=== PATIENT | female | born 1955 | race Caucasian/White ===

== ENCOUNTER 2021-08-01 02:17 | Inpatient (IN) | payer MEDICARE, OTHER ==
[~2021-08-01] VITALS: Ht 162.6 cm; Wt 72.6 kg
--- NOTE | 2021-08-01 04:00 | NUR ---
CARLA FROM [facility] FOR AGRESSIVE BEHAVIOR AND STRIKING STAFF FOR MEDCLEARANCE FOR PATRICIA PSYCH. PATIENT TAKEN TO ER BED 10
[2021-08-01 04:34] LABS: BASOPHILS # (AUTO) 0.1 K/uL (0.0-0.2); BASOPHILS % (AUTO) 0.7 % (0.0-2.0); HEMATOCRIT 39 % (33-45); HEMOGLOBIN 13.5 g/dL (11.5-14.8); LYMPHOCYTES # (AUTO) 0.7 K/uL (0.8-4.8); LYMPHOCYTES % (AUTO) 8.3 % (20.0-44.0); MEAN CORPUSCULAR HGB CONC 35 g/dl (31.0-36.0); MEAN CORPUSCULAR VOLUME 87 fL (82-100); MONOCYTES # (AUTO) 0.6 K/uL (0.1-1.30); MONOCYTES % (AUTO) 7.5 % (2.0-12.0); NEUTROPHILS # (AUTO) 6.8 K/uL (1.8-8.9); NEUTROPHILS % (AUTO) 82.5 % (43.0-81.0); PLATELET COUNT (AUTO) 228 K/uL (150-450); WHITE BLOOD COUNT (AUTO) 8.3 K/uL (4.3-11.0)
--- NOTE | 2021-08-01 04:43 | NUR ---
COVID ANTIGEN SWAB COLLECTED AND SENT TO LAB
[2021-08-01 04:45] LABS: CALCIUM, SERUM 9.2 mg/dL (8.5-10.1); CARBON DIOXIDE 27 mmol/L (21-32); CHLORIDE 106 mmol/L (98-107); CREATININE 0.9 mg/dL (0.6-1.3); GLUCOSE 120 mg/dL (74-106); POTASSIUM 3.6 mmol/L (3.5-5.1); SODIUM SERUM 141 mmol/L (136-145); UREA NITROGEN, BLOOD 30 mg/dL (7-18)
[2021-08-01 04:50] LABS: ALANINE AMINOTRANSFERASE 22 U/L (12-78); ALBUMIN 3.6 g/dL (3.4-5.0); ALCOHOL, BLOOD < 3 mg/dL (0-0); ALKALINE PHOSPHATASE 106 U/L (46-116); ASPARTATE AMINOTRANSFERASE 21 U/L (15-37); BILIRUBIN,DIRECT 0.2 mg/dL (0.0-0.2); BILIRUBIN,TOTAL 0.9 mg/dL (0.2-1.0); TOTAL PROTEIN, SERUM 6.7 g/dL (6.4-8.2)
[2021-08-01 04:51] LABS: ACETAMINOPHEN 0 ug/ml (10-30)
[2021-08-01] MEDS ORDERED: IV NS 0.9% 1,000 ML IV ONE (05:00)
[2021-08-01 05:50] LABS: BILIRUBIN,URINE NEGATIVE (NEGATIVE); COLOR,URINE YELLOW (YELLOW); LEUKOCYTE ESTERASE ,URINE NEGATIVE (NEGATIVE); NITRITE, URINE NEGATIVE (NEGATIVE); PROTEIN,URINE NEGATIVE (NEGATIVE); UGLUCOSE NEGATIVE (NEGATIVE); UROBILINOGEN,URINE 0.2 EU/dL (0.2)
--- NOTE | 2021-08-01 08:10 | NUR ---
REPORT GIVEN TO GUDELIA LOU FOR FAZAL.
--- NOTE | 2021-08-01 08:30 | NUR ---
RN-ADMISSION NOTES ADMITTED 66 Y.O FEMALE PATIENT FROM [facility] ER. PATIENT IS UNDER THE CARE OF DR. VALDEZ( PSYCHIATRIST) DR. BAUER COVERING FOR TODAY SEEN THE PATIENT WITH ORDERS.DR. GALINDO ( TOOL CRIB MANAGER) MADE AWARE OF THE ADMISSION. PATIENT ARRIVED IN THE UNIT VIA HOSPITAL BED ACCOMPANIED BY ONE ER STAFF. PATIENT IS AWAKE,A/O X1,GUARDED. UPON FACE TO FACE ASSESSMENT WITH THE PATIENT ,PATIENT IS CONFUSED REFUSED TO ANSWER QUESTIONS,POOR HISTORIAN UNABLE TO GIVE INFORMATIONS,SOME INFORMATIONS WAS OBTAINED FROM HER SISTER EAGLE DO ([phone]). SKIN ASSESSMENT DONE ALSO MRSA SWAB DONE AND SENT TO THE LABS . PATIENT NEEDS ASSIST IN AMBULATING DUE TO UNSTEADY GAIT.PER PATIENT'S SISTER ( EAGLE) NO PNA AND FLU VACCINE THIS YEAR FOR THE PATIENT BUT GOT THE 2 DOSES OF COVID VACCINE WITH BAD REACTIONS.PATIENT WAS PUT ON 5150 HOLD FOR HARM SOME ONE ELSE/GD . PER HOLD PATIENT WAS AGGRESSIVE AT THE FACILITY HITTING STAFF AND REFUSING HER MEDS. PATIENT ORIENTED IN THE UNIT AND UNIT POLICIES. PATIENT'S RIGHT AND ADVISEMENT WAS GIVEN TO THE PATIENT. Addendum: 08/01/21 at 1835 by VIRGINIA LEDEZMA RN PATIENT X1 WHITE NECKLACE WITH HER, REFUSED TO GIVE TO THE STAFF FOR SAFE KEEPING.
[2021-08-01 09:00] VITALS: BP 137/90
[2021-08-01] MEDS ORDERED: MAG HYDROX/AL HYDROX/SIMETH 30 ML UDC PO PRN (09:00)
[2021-08-01] MEDS ORDERED: MAGNESIUM HYDROXIDE 30 ML UDC PO PRN (09:00)
[2021-08-01] MEDS ORDERED: CARB1TAB40 MT (12:15)
[2021-08-01] MEDS ORDERED: PRAV40TA3 PO (12:15)
[2021-08-01] MEDS ORDERED: MEMA10TA56 PO (12:15)
[2021-08-01] MEDS ORDERED: DOCU100C36 PO (12:15)
[2021-08-01] MEDS ORDERED: PRAM0.258 PO (12:15)
[2021-08-01] MEDS ORDERED: PRAM0.253 PO (12:20)
[2021-08-01] MEDS ORDERED: MEMANTINE HCL 5 MG TABLET PO SCH (14:00)
[2021-08-01] MEDS: PRAMIPEXOLE DI-HCL 0.25 MG TABLET PO SCH ×2 (14:29→17:22)
[2021-08-01 16:00] VITALS: BP 116/67
[2021-08-01] MEDS: CARBIDOPA/LEV CR 50/200 MG 1 UDTAB.SA PO SCH (17:22)
--- NOTE | 2021-08-01 19:35 | NUR ---
RN OPENING NOTE PATIENT AWAKE GERICHAIR NEAR NURSE'S STATION. A/OX1. NO S/S OF DISTRESS; BREATHING UNLABORED ON RM AIR. PATIENT PRESENTS MINIMALLY ANXIOUS IN HER CHAIR BUT PLEASANT AFFECT OTHERWISE. SAFETY MEASURES IN PLACE: BED AT LOWEST POSITION, CALL LIGHT WITHIN ACCESS. WILL CONTINUE TO MONITOR PATIENT.
[2021-08-01 21:09] VITALS: BP 113/69
[2021-08-01] MEDS: ATORVASTATIN 40 MG TABLET PO SCH (21:34)
[2021-08-01] MEDS: QUETIAPINE FUMARATE 25 MG TABLET PO SCH (21:34)
[2021-08-01] MEDS: MEMANTINE HCL 5 MG TABLET PO SCH (21:35)
[2021-08-01] MEDS: TEMAZEPAM 7.5 MG CAPSULE PO PRN (22:53)
[2021-08-02] MEDS: LORAZEPAM 0.5 MG TABLET PO PRN ×2 (02:06→19:51)
[2021-08-02 08:00] VITALS: BP 112/81
[2021-08-02] MEDS: PRAMIPEXOLE DI-HCL 0.25 MG TABLET PO SCH ×2 (09:07→17:02)
[2021-08-02] MEDS: DOCUSATE SODIUM 100 MG CAPSULE PO SCH (09:07)
[2021-08-02] MEDS: FLUOXETINE HCL 20 MG CAPSULE PO SCH (09:07)
[2021-08-02 16:00] VITALS: BP 142/73
[2021-08-02] MEDS: CARBIDOPA/LEV CR 50/200 MG 1 UDTAB.SA PO SCH (17:02)
[2021-08-02 20:23] VITALS: BP 132/74
[2021-08-02 20:26] VITALS: BP 132/74
[2021-08-02] MEDS: ATORVASTATIN 40 MG TABLET PO SCH (21:40)
[2021-08-02] MEDS: MEMANTINE HCL 5 MG TABLET PO SCH (21:40)
[2021-08-02] MEDS: QUETIAPINE FUMARATE 25 MG TABLET PO SCH (21:40)
--- NOTE | 2021-08-02 22:54 | NUR ---
GPS RN NOTES PATIENT CURRENTLY IN CLAUDE-CHAIR FOR AGGRESSIVE BEHAVIOR; ATTEMPTED TO DO SKIN ASSESSMENT, PATIENT AGITATED, RESTLESS AND AGGRESSIVE; TRYING TO GET OUT OF CHAIR, SHAKING TABLE AND CRYING; PRN MEDS ALREADY GIVEN; WITH NO RELIEF; PER PREVIOUS SHIFT, PATIENT ATTEMPTS TO STRIKE STAFF WHEN UPSET; UNABLE TO TAKE PHOTOS AT THIS TIME; WILL TRY AGAIN LATER IF PATIENT IS CALM; CHARGE NURSE MADE AWARE; WILL CONT TO MONITOR
--- NOTE | 2021-08-03 01:35 | NUR ---
GPS RN NOTES PATIENT AGITATED, ATTEMPTING TO STRIKE STAFF, YELLING AT OTHER PATIENTS TO SHUT UP; UNABLE TO DO SKIN ASSESSMENT, PATIENT REFUSING, CHARGE NURSE AWARE
[2021-08-03] MEDS: LORAZEPAM 0.5 MG TABLET PO PRN ×3 (05:47→20:14)
[2021-08-03 08:00] VITALS: BP 130/75
[2021-08-03] MEDS: FLUOXETINE HCL 20 MG CAPSULE PO SCH (08:57)
[2021-08-03] MEDS: PRAMIPEXOLE DI-HCL 0.25 MG TABLET PO SCH ×2 (08:57→17:09)
[2021-08-03] MEDS: DOCUSATE SODIUM 100 MG CAPSULE PO SCH (08:57)
--- NOTE | 2021-08-03 09:58 | NUR ---
XAVI Admit Source: Patient placed on a 5150 hold for danger to others and GD. Patient was aggressive at [facility] and was non compliant. Patient currently resides at [facility] [address] [place] [address]; ([phone]). XAVI spoke with Maximiliano portillo who stated that pt is welcomed back upon discharge.
--- NOTE | 2021-08-03 09:58 | NUR ---
XAVI Initial Discharge Plan: Patient currently resides at [facility] [address] [place] [address]; ([phone]). XAVI spoke with Maximiliano portillo who stated that pt is welcomed back upon discharge. XAVI will work with the MD, treatment team, and family to help coordinate appropriate discharge.
--- NOTE | 2021-08-03 10:00 | NUR ---
XAVI Family Contact: XAVI contacted patient's sister Nataliya ([phone]) discussed treatment and discharge plan. She stated that she is the DPOA and will send documents. Nataliya would want pt back to [facility] once pt is stable.
--- NOTE | 2021-08-03 11:23 | NUR ---
DPOA: Patient's sister Nataliya ([phone]) sent DPOA documents to this check writer salesperson. This check writer salesperson placed in patient's chart.
[2021-08-03 16:00] VITALS: BP 116/76
[2021-08-03] MEDS: CARBIDOPA/LEV CR 50/200 MG 1 UDTAB.SA PO SCH (17:10)
[2021-08-03] MEDS: ACETAMINOPHEN 325 MG TABLET PO PRN (20:04)
[2021-08-03 20:06] VITALS: BP 136/56
--- NOTE | 2021-08-03 20:06 | NUR ---
GPS RN NOTE: PAIN PATIENT C/O BACK PAIN BUT UNABLE TO SCALE PAIN LEVEL DUE TO CONFUSION. PRN TYLENOL 650 MG PO ADMINISTERED.
--- NOTE | 2021-08-03 20:16 | NUR ---
GPS RN NOTE: ANXIETY/AGITATION PATIENT IS ANXIOUS, RESTLESS, BANGING THE CLAUDE CHAIR TRAY, NON REDIRECTABLE. PRN ATIVAN 0.5 MG 1 TAB PO ADMINISTERED. WILL CONTINUE TO MONITOR.
[2021-08-03] MEDS: MEMANTINE HCL 5 MG TABLET PO SCH (21:37)
[2021-08-03] MEDS: ATORVASTATIN 40 MG TABLET PO SCH (21:37)
[2021-08-03] MEDS: QUETIAPINE FUMARATE 25 MG TABLET PO SCH (21:48)
[2021-08-04 08:00] VITALS: BP 100/52
[2021-08-04 08:02] LABS: CALCIUM, SERUM 8.7 mg/dL (8.5-10.1); CREATININE 0.7 mg/dL (0.6-1.3); POTASSIUM 3.7 mmol/L (3.5-5.1)
[2021-08-04] MEDS: FLUOXETINE HCL 20 MG CAPSULE PO SCH (09:25)
[2021-08-04] MEDS: PRAMIPEXOLE DI-HCL 0.25 MG TABLET PO SCH ×2 (09:25→18:02)
[2021-08-04] MEDS: DOCUSATE SODIUM 100 MG CAPSULE PO SCH (09:25)
[2021-08-04] MEDS: LORAZEPAM 0.5 MG TABLET PO PRN (14:58)
[2021-08-04 16:00] VITALS: BP 110/55
[2021-08-04] MEDS: CARBIDOPA/LEV CR 50/200 MG 1 UDTAB.SA PO SCH (18:02)
[2021-08-04 19:48] VITALS: BP 102/59
[2021-08-04 19:56] VITALS: BP 102/59
[2021-08-04] MEDS: TEMAZEPAM 7.5 MG CAPSULE PO PRN (21:36)
[2021-08-04] MEDS: QUETIAPINE FUMARATE 25 MG TABLET PO SCH (21:37)
[2021-08-04] MEDS: MEMANTINE HCL 5 MG TABLET PO SCH (21:37)
[2021-08-04] MEDS: ATORVASTATIN 40 MG TABLET PO SCH (21:37)
--- NOTE | 2021-08-05 04:45 | NUR ---
alert and orientated x1 confused takes her medication crushed with applesauce swallows w/o a problem slept in her bed always with the bed alarm on made the attemt to get OOB toward the AM placed in a Wendy Chair she at times will strike out a attempt to hit the nurse when gown being changed or when with the assist of 2 nurses placed n the chair
[2021-08-05 08:00] VITALS: BP 123/76
[2021-08-05] MEDS: FLUOXETINE HCL 20 MG CAPSULE PO SCH (08:49)
[2021-08-05] MEDS: LORAZEPAM 0.5 MG TABLET PO PRN ×2 (08:50→16:58)
[2021-08-05] MEDS: DOCUSATE SODIUM 100 MG CAPSULE PO SCH (08:50)
[2021-08-05] MEDS: PRAMIPEXOLE DI-HCL 0.25 MG TABLET PO SCH ×2 (08:50→17:00)
--- NOTE | 2021-08-05 09:10 | NUR ---
GIVEN ATIVAN AT THIS TIME.
[2021-08-05] MEDS: ACETAMINOPHEN 325 MG TABLET PO PRN (10:45)
--- NOTE | 2021-08-05 10:45 | NUR ---
GIVEN TYLENOL, STILL AGITATED.
[2021-08-05] MEDS: QUETIAPINE FUMARATE 25 MG TABLET PO SCH ×3 (14:36→21:44)
--- NOTE | 2021-08-05 15:27 | NUR ---
Individual Counseling: SW attempted to meet with pt. in activity room. Pt. is not appropriate for therapeutic milieu at this time due to confusion. SW will continue to monitor patient's ability to participate in therapy.
[2021-08-05 16:00] VITALS: BP 104/67
--- NOTE | 2021-08-05 16:58 | NUR ---
given ativan 0.5 mg for severe agitation.
[2021-08-05] MEDS: CARBIDOPA/LEV CR 50/200 MG 1 UDTAB.SA PO SCH (17:00)
--- NOTE | 2021-08-05 18:27 | NUR ---
severely agitated in afternoon and pulling paneling off dining rmKip vargas.poor appetite
[2021-08-05 20:00] VITALS: BP 102/43
[2021-08-05] MEDS: ATORVASTATIN 40 MG TABLET PO SCH (21:43)
[2021-08-05] MEDS: MEMANTINE HCL 5 MG TABLET PO SCH (21:44)
[2021-08-06 08:00] VITALS: BP 114/66
[2021-08-06] MEDS: QUETIAPINE FUMARATE 25 MG TABLET PO SCH ×4 (08:47→21:08)
[2021-08-06] MEDS: DOCUSATE SODIUM 100 MG CAPSULE PO SCH (08:48)
[2021-08-06] MEDS: PRAMIPEXOLE DI-HCL 0.25 MG TABLET PO SCH ×2 (08:48→17:04)
[2021-08-06] MEDS: FLUOXETINE HCL 20 MG CAPSULE PO SCH (08:48)
[2021-08-06] MEDS: DIVALPROEX SODIUM 125 MG CAP.SPRINK PO SCH ×3 (09:57→17:03)
[2021-08-06] MEDS: LORAZEPAM 0.5 MG TABLET PO PRN (15:55)
[2021-08-06 16:00] VITALS: BP 100/69
[2021-08-06] MEDS: CARBIDOPA/LEV CR 50/200 MG 1 UDTAB.SA PO SCH (17:04)
[2021-08-06 20:00] VITALS: BP 122/68
[2021-08-06] MEDS: MEMANTINE HCL 5 MG TABLET PO SCH (21:08)
[2021-08-06] MEDS: ATORVASTATIN 40 MG TABLET PO SCH (21:08)
[2021-08-06] MEDS: TEMAZEPAM 7.5 MG CAPSULE PO PRN (21:52)
--- NOTE | 2021-08-06 21:55 | NUR ---
GPS-RN NOTES: INSOMNIA PATIENT IS UNABLE TO SLEEP. PRN RESTORIL 7.5MG PO GIVEN ORDERED. WILL CONTINUE TO MONITOR.
[2021-08-07 08:00] VITALS: BP 130/98
[2021-08-07] MEDS: DOCUSATE SODIUM 100 MG CAPSULE PO SCH (08:25)
[2021-08-07] MEDS: QUETIAPINE FUMARATE 25 MG TABLET PO SCH ×4 (08:25→21:04)
[2021-08-07] MEDS: PRAMIPEXOLE DI-HCL 0.25 MG TABLET PO SCH ×2 (08:25→17:08)
[2021-08-07] MEDS: DIVALPROEX SODIUM 125 MG CAP.SPRINK PO SCH ×3 (08:25→17:08)
--- NOTE | 2021-08-07 11:24 | NUR ---
Court Notification: SW contacted patient's sister Nataliya ([phone]) of patient's 5250 hearing today. XAVI left a voicemail.
--- NOTE | 2021-08-07 12:50 | NUR ---
Court Hearing: Patient's court hearing for 6000 was today and it was upheld for GD and danger to others.
[2021-08-07 16:00] VITALS: BP 103/62
[2021-08-07] MEDS: CARBIDOPA/LEV CR 50/200 MG 1 UDTAB.SA PO SCH (17:08)
[2021-08-07] MEDS: LORAZEPAM 0.5 MG TABLET PO PRN (19:47)
--- NOTE | 2021-08-07 19:49 | NUR ---
RN NOTES: ANXIETY PATIENT IS ANXIOUS, RESTLESS,PARANOID , NON REDIRECTABLE. PRN ATIVAN 0.5 MG PO ADMINISTERED. WILL CONTINUE TO MONITOR.
[2021-08-07 20:00] VITALS: BP 128/92
[2021-08-07] MEDS: MEMANTINE HCL 5 MG TABLET PO SCH (21:03)
[2021-08-07] MEDS: ATORVASTATIN 40 MG TABLET PO SCH (21:03)
[2021-08-08 08:00] VITALS: BP 110/60
[2021-08-08] MEDS: QUETIAPINE FUMARATE 25 MG TABLET PO SCH ×4 (08:02→21:21)
[2021-08-08] MEDS: DOCUSATE SODIUM 100 MG CAPSULE PO SCH (08:02)
[2021-08-08] MEDS: DIVALPROEX SODIUM 125 MG CAP.SPRINK PO SCH ×3 (08:03→16:48)
[2021-08-08] MEDS: PRAMIPEXOLE DI-HCL 0.25 MG TABLET PO SCH ×2 (08:03→16:48)
[2021-08-08 16:00] VITALS: BP 108/68
[2021-08-08] MEDS: CARBIDOPA/LEV CR 50/200 MG 1 UDTAB.SA PO SCH (16:48)
[2021-08-08 20:00] VITALS: BP 105/65
[2021-08-08] MEDS: MEMANTINE HCL 5 MG TABLET PO SCH (21:21)
[2021-08-08] MEDS: ATORVASTATIN 40 MG TABLET PO SCH (21:21)
[2021-08-09] MEDS: TEMAZEPAM 7.5 MG CAPSULE PO PRN ×2 (01:21→22:36)
--- NOTE | 2021-08-09 01:21 | NUR ---
RN NOTES: INSOMNIA PT. C/O UNABLE TO SLEEP RESTORIL PRN 7.5 MG PO GIVEN PER PT. REQUEST,WILL CONTINUE TO MONITOR.
[2021-08-09] MEDS: DOCUSATE SODIUM 100 MG CAPSULE PO SCH (07:38)
[2021-08-09] MEDS: PRAMIPEXOLE DI-HCL 0.25 MG TABLET PO SCH ×2 (07:39→17:26)
[2021-08-09] MEDS: DIVALPROEX SODIUM 125 MG CAP.SPRINK PO SCH ×3 (07:39→17:26)
[2021-08-09] MEDS: QUETIAPINE FUMARATE 25 MG TABLET PO SCH ×4 (07:40→21:33)
[2021-08-09 08:00] VITALS: BP 109/62
[2021-08-09] MEDS: CARBIDOPA/LEV CR 50/200 MG 1 UDTAB.SA PO SCH (17:27)
[2021-08-09 20:27] VITALS: BP 109/69
[2021-08-09] MEDS: ATORVASTATIN 40 MG TABLET PO SCH (21:24)
[2021-08-09] MEDS: MEMANTINE HCL 5 MG TABLET PO SCH (21:24)
[2021-08-09] MEDS: ACETAMINOPHEN 325 MG TABLET PO PRN (22:26)
--- NOTE | 2021-08-09 22:36 | NUR ---
RN NOTE: INSOMNIA PATIENT UNABLE TO SLEEP, RESTLESS. RESTORIL PRN 7.5 MG PO GIVEN ORDERED. WILL CONTINUE TO MONITOR
[2021-08-10 08:00] VITALS: BP 136/73
[2021-08-10] MEDS: DIVALPROEX SODIUM 125 MG CAP.SPRINK PO SCH ×3 (09:06→17:11)
[2021-08-10] MEDS: QUETIAPINE FUMARATE 25 MG TABLET PO SCH ×4 (09:06→21:58)
[2021-08-10] MEDS: DOCUSATE SODIUM 100 MG CAPSULE PO SCH (09:07)
[2021-08-10] MEDS: PRAMIPEXOLE DI-HCL 0.25 MG TABLET PO SCH ×2 (09:07→17:12)
--- NOTE | 2021-08-10 11:29 | NUR ---
XAVI Family Contact: XAVI spoke with patient's PONCHO An ([phone]) and wanted an update of pt's status. SW explained pt's status that pt has been uncooperative and aggressive towards staff.
[2021-08-10 16:00] VITALS: BP 106/72
--- NOTE | 2021-08-10 16:52 | NUR ---
PT REFUSED ATIVAN FOR AGITATION. WILL CONTINUE TO MONITOR.
[2021-08-10] MEDS: CARBIDOPA/LEV CR 50/200 MG 1 UDTAB.SA PO SCH (17:11)
--- NOTE | 2021-08-10 19:28 | NUR ---
GPS RN NOTE PATIENT REFUSED VITALS AT THIS TIME, AGITATED TOWARDS STAFF, ATTEMPTING TO STRIKE AT STAFF WHEN APPROACHED. WILL OFFER FLUIDS, SNACK AND MEDICATION. WILL CONTINUE TO OBSERVE FOR ANY CHANGE OF CONDITION.
[2021-08-10] MEDS: LORAZEPAM 0.5 MG TABLET PO PRN (19:47)
--- NOTE | 2021-08-10 19:53 | NUR ---
GPS RN NOTE: AGITATION/ANXIETY PATIENT IS VERY AGITATED, ANXIOUS, RESTLESS, STRIKING AT STAFF. PRN ATIVAN 0.5 MG PO ADMINISTERED. PATIENT HAD A CUP OF ORANGE JUICE AND TOLERATED WELL. WILL CONTINUE TO MONITOR.
--- NOTE | 2021-08-10 20:35 | NUR ---
GPS RN NOTE PATIENT WAS UP IN A CLAUDE CHAIR, PRN ATIVAN WAS GIVEN DUE TO AGITATION/ANXIETY AND IT WAS EFFECTIVE. PATIENT DID CALM DOWN AND RELAXED AND ASSISTED PATIENT BACK TO BED. PATIENT IS RESTING IN BED AT THIS TIME. BED IN LOW LOCKED POSITION. BED ALARM ON FOR SAFETY. WILL CONTINUE TO MONITOR FOR SAFETY AND BEHAVIOR.
[2021-08-10] MEDS: ATORVASTATIN 40 MG TABLET PO SCH (21:58)
[2021-08-10] MEDS: MEMANTINE HCL 5 MG TABLET PO SCH (21:58)
[2021-08-11] MEDS: ACETAMINOPHEN 325 MG TABLET PO PRN (06:09)
--- NOTE | 2021-08-11 06:14 | NUR ---
GPS RN NOTE: PAIN PATIENT C/O BILATERAL LOWER EXTREMITIES PAIN, UNABLE TO SCAN DUE TO CONFUSION. PRN TYLENOL 650 MG PO ADMINISTERED. WILL ENDORSE TO AM RN FOR CONTINUITY OF CARE.
[2021-08-11] MEDS: DOCUSATE SODIUM 100 MG CAPSULE PO SCH (08:13)
[2021-08-11] MEDS: DIVALPROEX SODIUM 125 MG CAP.SPRINK PO SCH ×3 (08:13→17:00)
[2021-08-11] MEDS: PRAMIPEXOLE DI-HCL 0.25 MG TABLET PO SCH ×2 (08:13→17:26)
[2021-08-11] MEDS: QUETIAPINE FUMARATE 25 MG TABLET PO SCH ×4 (08:14→21:03)
[2021-08-11 08:42] VITALS: BP 112/63
[2021-08-11] MEDS: LORAZEPAM 0.5 MG TABLET PO PRN (14:46)
--- NOTE | 2021-08-11 14:47 | NUR ---
PT REFUSED ATIVAN FOR AGITATION. WILL CONTINUE TO MONITOR
[2021-08-11 16:21] VITALS: BP 110/67
[2021-08-11] MEDS: CARBIDOPA/LEV CR 50/200 MG 1 UDTAB.SA PO SCH (17:29)
[2021-08-11 20:26] VITALS: BP 119/46
[2021-08-11] MEDS: ATORVASTATIN 40 MG TABLET PO SCH (21:03)
[2021-08-11] MEDS: MEMANTINE HCL 5 MG TABLET PO SCH (21:03)
[2021-08-11] MEDS: TEMAZEPAM 7.5 MG CAPSULE PO PRN (23:59)
[2021-08-12 07:24] LABS: ALBUMIN 2.9 g/dL (3.4-5.0); BILIRUBIN,TOTAL 0.5 mg/dL (0.2-1.0); CALCIUM, SERUM 8.8 mg/dL (8.5-10.1); CREATININE 0.6 mg/dL (0.6-1.3); POTASSIUM 3.3 mmol/L (3.5-5.1); TOTAL PROTEIN, SERUM 6.3 g/dL (6.4-8.2)
[2021-08-12 07:43] LABS: BASOPHILS % (AUTO) 0.8 % (0.0-2.0); EOSINOPHILS % (AUTO) 2.6 % (0.0-6.0); HEMATOCRIT 36 % (33-45); HEMOGLOBIN 12.5 g/dL (11.5-14.8); LYMPHOCYTES # (AUTO) 0.9 K/uL (0.8-4.8); LYMPHOCYTES % (AUTO) 20.5 % (20.0-44.0); MEAN CORPUSCULAR HGB CONC 35 g/dl (31.0-36.0); MEAN CORPUSCULAR VOLUME 87 fL (82-100); MONOCYTES # (AUTO) 0.4 K/uL (0.1-1.30); MONOCYTES % (AUTO) 9.6 % (2.0-12.0); NEUTROPHILS # (AUTO) 2.8 K/uL (1.8-8.9); NEUTROPHILS % (AUTO) 66.5 % (43.0-81.0); PLATELET COUNT (AUTO) 186 K/uL (150-450); RED BLOOD CELL COUNT(AUTO) 4.09 MIL/uL (4.0-5.2); WHITE BLOOD COUNT (AUTO) 4.2 K/uL (4.3-11.0)
[2021-08-12 08:00] VITALS: BP 93/56
[2021-08-12] MEDS: ACETAMINOPHEN 325 MG TABLET PO PRN (08:16)
[2021-08-12] MEDS: QUETIAPINE FUMARATE 25 MG TABLET PO SCH ×4 (08:17→21:45)
[2021-08-12] MEDS: DOCUSATE SODIUM 100 MG CAPSULE PO SCH (08:17)
[2021-08-12] MEDS: PRAMIPEXOLE DI-HCL 0.25 MG TABLET PO SCH ×2 (08:18→17:32)
[2021-08-12] MEDS: LORAZEPAM 0.5 MG TABLET PO PRN ×2 (08:18→21:02)
--- NOTE | 2021-08-12 08:20 | NUR ---
RNShaanCO: AKHIL HOLDEN.
[2021-08-12] MEDS: DIVALPROEX SODIUM 125 MG CAP.SPRINK PO SCH ×4 (08:42→17:00)
[2021-08-12] MEDS ORDERED: POTASSIUM CHLORIDE 20 MEQ TAB.PRT.SR PO SCH (10:00)
[2021-08-12 16:35] VITALS: BP 98/73
[2021-08-12] MEDS: CARBIDOPA/LEV CR 50/200 MG 1 UDTAB.SA PO SCH (17:32)
--- NOTE | 2021-08-12 17:32 | NUR ---
RN-CO: PT REFUSED ALL HER MEDICATIONS THEN PULLED RN'S HAIR.
[2021-08-12 20:00] VITALS: BP 95/61
--- NOTE | 2021-08-12 21:05 | NUR ---
GPS RN NOTE:ANXIETY PATIENT IS VERY ANXIOUS, RESTLESS. PRN ATIVAN 0.5 MG PO ADMINISTERED. WILL CONTINUE TO MONITOR.
[2021-08-12] MEDS: MEMANTINE HCL 5 MG TABLET PO SCH (21:45)
[2021-08-12] MEDS: ATORVASTATIN 40 MG TABLET PO SCH (21:45)
[2021-08-13 07:21] LABS: CALCIUM, SERUM 8.8 mg/dL (8.5-10.1); CREATININE 0.7 mg/dL (0.6-1.3); POTASSIUM 3.3 mmol/L (3.5-5.1)
[2021-08-13 08:00] VITALS: BP 127/76
[2021-08-13] MEDS: PRAMIPEXOLE DI-HCL 0.25 MG TABLET PO SCH ×2 (08:28→17:04)
[2021-08-13] MEDS: DIVALPROEX SODIUM 125 MG CAP.SPRINK PO SCH ×3 (08:28→17:00)
[2021-08-13] MEDS: DOCUSATE SODIUM 100 MG CAPSULE PO SCH (08:28)
[2021-08-13] MEDS: QUETIAPINE FUMARATE 25 MG TABLET PO SCH ×4 (08:29→21:42)
[2021-08-13] MEDS ORDERED: POTASSIUM CHLORIDE 20 MEQ TAB.PRT.SR PO SCH (10:00)
--- NOTE | 2021-08-13 14:48 | NUR ---
RN-NOTES NOTED PATIENT SCREAMING AND YELLING IN THE DAY ROOM ,REDIRECTED AND OFFERED PRN P.O BUT PATIENT REFUSED. DR. BAUER ( COVERING FOR DR. VALDEZ) MADE AWARE WITH T.O ORDER OF HALDOL 5MG IM ONCE. NOTED AND CARRIED OUT. Addendum: 08/13/21 at 1503 by VIRGINIA LEDEZMA RN PATIENT AGREED TO HAVE THE SHOT,STATED " GIVE ME THE SHOT".
[2021-08-13] MEDS ORDERED: HALOPERIDOL LACTATE INJ 5 MG/ML VIAL IM ONE (15:00)
--- NOTE | 2021-08-13 15:06 | NUR ---
RN-NOTES PATIENT 'S SISTER MADE AWARE OF PATIENT HAVING IM SHOT . Addendum: 08/13/21 at 1514 by VIRGINIA LEDEZMA RN PATIENT SISTER NAME WAS INA DO [phone]
--- NOTE | 2021-08-13 15:30 | NUR ---
RN-NOTES PATIENT IN THE DAY ROOM UP IN THE CLAUDE CHAIR,CALM,NO ACUTE DISTRESS NOTED.
[2021-08-13 16:00] VITALS: BP 100/60
[2021-08-13] MEDS: CARBIDOPA/LEV CR 50/200 MG 1 UDTAB.SA PO SCH (17:04)
--- NOTE | 2021-08-13 17:04 | NUR ---
RN- notes Patient refused all 1700 and 1800 P.O medications despite encouragement and explanations risk and benefits. offered x3
[2021-08-13 20:00] VITALS: BP 119/75
[2021-08-13] MEDS: MEMANTINE HCL 5 MG TABLET PO SCH (21:42)
[2021-08-13] MEDS: ATORVASTATIN 40 MG TABLET PO SCH (21:42)
[2021-08-14 07:51] LABS: CALCIUM, SERUM 9.1 mg/dL (8.5-10.1); CREATININE 0.8 mg/dL (0.6-1.3)
[2021-08-14 08:00] VITALS: BP 119/76
[2021-08-14] MEDS: DOCUSATE SODIUM 100 MG CAPSULE PO SCH (10:01)
[2021-08-14] MEDS: QUETIAPINE FUMARATE 25 MG TABLET PO SCH ×3 (10:01→17:44)
[2021-08-14] MEDS: DIVALPROEX SODIUM 125 MG CAP.SPRINK PO SCH ×3 (10:01→17:44)
[2021-08-14] MEDS: PRAMIPEXOLE DI-HCL 0.25 MG TABLET PO SCH ×2 (10:01→17:44)
[2021-08-14 16:00] VITALS: BP 112/69
[2021-08-14] MEDS: CARBIDOPA/LEV CR 50/200 MG 1 UDTAB.SA PO SCH (17:44)
--- NOTE | 2021-08-14 18:15 | NUR ---
RN-NOTES PATIENT SLEEPING WITH BREATHING EVEN AND NONLABORED EASILY AROUSED A/OX1. NO ACUTE DISTRESS NOTED. PATIENT REMAINS CONFUSED, DISORGANIZED, LABILE, NOTED WITH EPISODE OF AGGRESSIVE TO WARDS STAFF DURING CARE.SAFETY PRECAUTIONS IN PLACE. COMPLIANT WITH MEDICATIONS. NEEDS MAXIMUM ASSIST WITH ADL'S. ALL NEEDS ATTENDED AND ANTICIPATED.WILL ENDORSE TO INCOMING SHIFT FOR CONTINUITY OF CARE.
--- NOTE | 2021-08-14 19:05 | NUR ---
RN opening notes Received Pt from morning nurse. Pt is resting in bed comfortably. Pt is alert and orientedX1,confused, anxious, guarded, disorganized and able to follow directions. On room air. No SOB. No S/s of distress noted. Reality orientation is provided. Safety precautions is maintained all the time. Will continue to monitor for behavior and safety and continue to monitor Q 15 mins checks per hospital protocol.
[2021-08-14 20:25] VITALS: BP 127/61
[2021-08-14] MEDS: QUETIAPINE FUMARATE 100 MG TABLET PO SCH (21:21)
[2021-08-14] MEDS: ATORVASTATIN 40 MG TABLET PO SCH (21:21)
[2021-08-14] MEDS: MEMANTINE HCL 5 MG TABLET PO SCH (21:21)
[2021-08-15 08:00] VITALS: BP 101/65
[2021-08-15] MEDS: PRAMIPEXOLE DI-HCL 0.25 MG TABLET PO SCH ×2 (08:01→17:15)
[2021-08-15] MEDS: DIVALPROEX SODIUM 125 MG CAP.SPRINK PO SCH ×3 (08:01→16:34)
[2021-08-15] MEDS: QUETIAPINE FUMARATE 25 MG TABLET PO SCH ×3 (08:01→16:33)
[2021-08-15] MEDS: DOCUSATE SODIUM 100 MG CAPSULE PO SCH (08:01)
--- NOTE | 2021-08-15 14:14 | NUR ---
RN-NOTES PATIENT REMAINS CONFUSED, DISORGANIZED, LABILE, NOTED WITH EPISODE OF AGGRESSIVE TOWARDS STAFF DURING CARE.SAFETY PRECAUTIONS IN PLACE. COMPLIANT WITH MEDICATIONS. NEEDS MAXIMUM ASSIST WITH ADL'S. ALL NEEDS ATTENDED AND ANTICIPATED.
[2021-08-15 16:00] VITALS: BP 107/61
[2021-08-15] MEDS: CARBIDOPA/LEV CR 50/200 MG 1 UDTAB.SA PO SCH (17:15)
[2021-08-15 20:26] VITALS: BP 112/63
[2021-08-15] MEDS: MEMANTINE HCL 5 MG TABLET PO SCH (21:25)
[2021-08-15] MEDS: QUETIAPINE FUMARATE 100 MG TABLET PO SCH (21:25)
[2021-08-15] MEDS: ATORVASTATIN 40 MG TABLET PO SCH (21:25)
--- NOTE | 2021-08-15 22:14 | NUR ---
RN-NOTES: PATIENT IS RESTING IN HER ROOM , EASILY AGITATED PARANOID, DISORGNIZED, COOPERATIVE WITH CARE AND COMPLIANT WITH MEDICATIONS., DENIES SI / HI AT THIS TIME ,NO ACUTE DISTRESS NOTED , ENCOURAGED PT. TO VERBALIZED ANY FEELING OR CONCERN , REDIRECTABLE, WILL CONTINUE TO MONITOR Q15 SAFETY AND BEHAVIOR.
[2021-08-16 08:00] VITALS: BP 121/64
[2021-08-16] MEDS: PRAMIPEXOLE DI-HCL 0.25 MG TABLET PO SCH ×2 (09:35→18:31)
[2021-08-16] MEDS: QUETIAPINE FUMARATE 25 MG TABLET PO SCH ×3 (09:36→17:48)
[2021-08-16] MEDS: DIVALPROEX SODIUM 125 MG CAP.SPRINK PO SCH ×3 (09:36→17:48)
[2021-08-16] MEDS: DOCUSATE SODIUM 100 MG CAPSULE PO SCH (09:37)
[2021-08-16 16:00] VITALS: BP 103/70
[2021-08-16] MEDS: CARBIDOPA/LEV CR 50/200 MG 1 UDTAB.SA PO SCH (18:31)
--- NOTE | 2021-08-16 19:05 | NUR ---
GPS RN NOTES PATIENT IN THE DINING ROOM SITTING IN A CHAIR. ALERT AND ORIENTED X1. NO S/S ACUTE DISTRESS NOTED. PATIENT REMAINS CONFUSED, DISORGANIZED, LABILE, ANXIOUS, RESTLESS AND MED COMPLIANT. SAFETY PRECAUTIONS IN PLACE. WILL CONTINUE TO MONITOR Q15MIN ROUNDS FOR SAFETY AND BEHAVIOR.
--- NOTE | 2021-08-16 20:00 | NUR ---
GPS RN NOTES PATIENT REFUSED WEEKLY SKIN BODY ASSESSMENT
[2021-08-16] MEDS: LORAZEPAM 0.5 MG TABLET PO PRN (20:11)
[2021-08-16 20:55] VITALS: BP 117/59
[2021-08-16] MEDS: QUETIAPINE FUMARATE 100 MG TABLET PO SCH (21:01)
[2021-08-16] MEDS: MEMANTINE HCL 5 MG TABLET PO SCH (21:01)
[2021-08-16] MEDS: ATORVASTATIN 40 MG TABLET PO SCH (21:01)
[2021-08-16] MEDS: TEMAZEPAM 7.5 MG CAPSULE PO PRN (22:07)
[2021-08-17 08:00] VITALS: BP 119/70
[2021-08-17] MEDS: DOCUSATE SODIUM 100 MG CAPSULE PO SCH (09:00)
[2021-08-17] MEDS: QUETIAPINE FUMARATE 25 MG TABLET PO SCH ×3 (09:00→17:03)
[2021-08-17] MEDS: PRAMIPEXOLE DI-HCL 0.25 MG TABLET PO SCH ×2 (10:41→18:27)
[2021-08-17] MEDS: QUETIAPINE FUMARATE 100 MG TABLET PO SCH ×7 (10:41→15:09)
[2021-08-17] MEDS: DIVALPROEX SODIUM 125 MG CAP.SPRINK PO SCH ×3 (12:40→17:02)
[2021-08-17 16:00] VITALS: BP 105/53
[2021-08-17] MEDS: CARBIDOPA/LEV CR 50/200 MG 1 UDTAB.SA PO SCH (18:28)
--- NOTE | 2021-08-17 19:04 | NUR ---
RN NOTES RECEIVED PT ASLEEP IN BED EASY TO AROUSE, ALERT AND ORIENTED X1. NO SOB, NO S/S ACUTE DISTRESS NOTED. PATIENT REMAINS CONFUSED, DISORGANIZED, LABILE, ANXIOUS, RESTLESS AND MED COMPLIANT CRUSHED WITH FOOD AND SIPS OF WATER COMPLIANT, SAFETY PRECAUTIONS IN PLACE. BED LOW TO FLOOR, WHEELS LOCKED , WILL CONTINUE TO MONITOR Q15MIN ROUNDS FOR SAFETY AND BEHAVIOR.
[2021-08-17 19:53] VITALS: BP 110/53
[2021-08-17] MEDS: ATORVASTATIN 40 MG TABLET PO SCH (21:40)
[2021-08-17] MEDS: MEMANTINE HCL 5 MG TABLET PO SCH (21:40)
[2021-08-18 08:00] VITALS: BP 123/68
--- NOTE | 2021-08-18 08:17 | NUR ---
SW Discharge Note: Patient will be discharged to residential facility [facility] [address] [place] [address]; ([phone]). Please arrange transportation via ambulance. [employer] spoke with Maximiliano portillo at [facility] ([phone]) who stated patient will be accepted at facility today. Patients is aware and agreeable. Patient is alert and oriented x1 and is not able to plan for self-care at this time but is willing to accept care provided for her at the facility. Patient denies suicidal or homicidal ideation. Patients sister PONCHO Hagen ([phone]) is aware and agreeable of discharge. Patient will follow-up with (Psychiatrist) Dr. Diaz [address], [place] [address]; ([phone]) and Manager Assessment Dr. High [address], [place] [address]; ([phone]). Patient presents with euthymic mood and congruent affect.
[2021-08-18] MEDS: DOCUSATE SODIUM 100 MG CAPSULE PO SCH (08:37)
[2021-08-18] MEDS: DIVALPROEX SODIUM 125 MG CAP.SPRINK PO SCH ×2 (08:38→12:23)
[2021-08-18] MEDS: PRAMIPEXOLE DI-HCL 0.25 MG TABLET PO SCH (08:38)
[2021-08-18] MEDS: QUETIAPINE FUMARATE 25 MG TABLET PO SCH ×2 (08:38→12:22)
--- NOTE | 2021-08-18 09:59 | NUR ---
RN-CO: PATIENT DENIED PAIN AND DISCOMFORTS, COOPERATIVE TO CARE. NO ACUTE DISTRESS NOTED. DENIED AH/VH, DENIED SI/HI. MEDICALLY CLEARED FOR DISCHARGE.
--- NOTE | 2021-08-18 11:23 | NUR ---
RN-CO: JORDI WAS SEEN BY DR MATOS AND DR BAUER, MEDICALLY CLEARED FOR DISCHARGE AND DR BAUER ORDERED TO DISCHARGE PT TODAY AND DISCONTINUE HOLD, NOTED AND CARRIED OUT. PATIENT REFUSED SKIN REASSESSMENT. PATIENT DENIED SI/HI AND COMMAND HALLUCINATION.
--- NOTE | 2021-08-18 14:13 | NUR ---
GUDELIA-CO; REPORT GIVEN TO "SAI ROLLINS
--- NOTE | 2021-08-18 14:14 | NUR ---
RN-CO: AMBULANCE IN THE UNIT, REPORT GIVEN. ALL BELONGINGS WAS GIVEN BACK TO THE PATIENT.
== END 2021-08-18 14:00 | DRG 885 ==
LOC: ER 02:40 → GPS 07:25
PROVIDERS: ADMIT Psychiatry & Neurology Psychiatry; ATTEND Nurse Practitioner Acute Care
DX: F25.1 Schizoaffective disorder, depressive type (principal); F23 Brief psychotic disorder; G20 Parkinson's disease; F02.80 Dementia in other diseases classified elsewhere, unspecified severity, without behavioral disturbance, psychotic disturbance, mood disturbance, and anxiety; Z88.1 Allergy status to other antibiotic agents; Z88.2 Allergy status to sulfonamides; Z79.899 Other long term (current) drug therapy; Z96.82 Presence of neurostimulator; R79.89 Other specified abnormal findings of blood chemistry; Z73.6 Limitation of activities due to disability; R53.1 Weakness; R27.8 Other lack of coordination; Z91.81 History of falling; F41.9 Anxiety disorder, unspecified; E87.6 Hypokalemia
CPT/HCPCS: 36415; 80048-TC; 80053-TC; 80076-TC; 80164-TC; 82962-TC; 85025-TC; 87081-TC; 97110-TC; 97112-TC; 97116-TC; 97530-TC; C9803; G0480; J1630